=== PATIENT | female | born 2000 | race Two or more races ===

== ENCOUNTER 2024-09-30 08:36 | Outpatient (RCR) | payer MEDICAID, SELFPAY ==
[2024-09-30 08:01] LABS: HCG Qualitative,Urine Negative
--- NOTE | 2024-09-30 09:00 | XR_ITS ---
Examination: Nuclear medicine gastric emptying study TECHNIQUE: Oral administration 2.3 mCi technetium 99m sulfur colloid Gastric imaging to 120 minutes Exam date and time: September 30, 2024 0832 hours INDICATIONS: Heartburn working bloating and distention 3 months FINDINGS: Gastric activity at 120 minutes is 25.6% IMPRESSION: Normal gastric emptying study
== END 2024-10-05 23:59 | disposition home or self-care (01) ==
LOC: SNUC 08:36
PROVIDERS: PCP Physician Assistant; Referring Provider Internal Medicine Gastroenterology; Visit Provider Internal Medicine Gastroenterology
DX: R12 Heartburn (principal); Z32.00 Encounter for pregnancy test, result unknown
CPT/HCPCS: 78264; 81025; A9541